=== PATIENT | male | born 2000 | race Caucasian/White ===

== ENCOUNTER 2022-06-21 06:31 | Emergency (ER) | payer SELFPAY ==
[2022-06-21 06:33] VITALS: BP 162/96; PULSE 80; RESP 17; TEMP 36.9; O2SAT 98; BMI 24.5
--- NOTE | 2022-06-21 07:09 | EDS_ITS ---
HPI History of Present Illness Chief Complaint: Fall Narrative Narrative: Patient is a 21-year-old male with no significant past medical history. He states last night he was sitting on his bed which he describes as a couch bed and accidentally fell off onto the ground. He denies striking his head or any loss of consciousness. He states this occurred around 12:30 AM. He reports that he felt a pop. He states that since that time he has had pain and a bulge in his inguinal region. He states he is very concerned that he may have developed a hernia or cause some type of injury because of the symptoms and therefore comes in for evaluation. PFSH PFS Home Medications ibuprofen 600 mg tablet 600 mg PO 4X/DAY PRN PRN pain #40 tabs 06/21/22 [Rx Last Taken Unknown] methocarbamol 500 mg tablet 500 mg PO 4X/DAY PRN PRN Muscle pain/spasm #40 tabs 06/21/22 [Rx Last Taken Unknown] Allergy/AdvReac Type Severity Reaction Status Date / Time Sulfa (Sulfonamide Allergy Hives Verified 06/21/22 06:36 Antibiotics) [sulfa drugs] Social History Smoking Status: Never smoker ROS ROS ED Constitutional Constitutional ED: Denies chills or fever(s) Eyes Eyes: Denies change in vision ENT ENT ED: Denies sore throat Cardiovascular Cardiovascular: Denies chest pain Respiratory/Chest Respiratory/Chest: Denies cough or dyspnea Gastrointestinal Gastrointestinal: Denies abdominal pain, diarrhea, nausea or vomiting Genitourinary Genitourinary ED: Denies dysuria or hematuria Musculoskeletal Musculoskeletal: Reports other Details: Positive bilateral hip pain ; Denies back pain or myalgias Integumentary Denies Abrasions or rash Neurologic Neurologic: Denies headache(s) or paresthesias Hematologic/Lymphatic Hematologic/Lymphatic: Denies easy bleeding or easy bruising EXAM Physical Exam Const Vital Signs: 06/21/22 06:33 06/21/22 06:38 Temperature 98.4 F Temperature Source Temporal Pulse Rate 80 Respiratory Rate 17 Respiratory Effort Normal Non-Labored Respiratory Depth Normal Respiratory Pattern Normal Blood Pressure 162/96 H Blood Pressure Mean 118 Pulse Ox 98 Oxygen Delivery Method Room Air Positive well nourished and well developed General Appearance ED: well developed HEENT HEENT Narrative: Normocephalic atraumatic Eyes PERRL and EOMs intact bilaterally Neck supple Resp normal respiratory effort and clear to auscultation bilaterally Cardio regular rate and regular rhythm GI normal to inspection, nondistended, normoactive bowel sounds, non-tender, non- distended and no masses Auscultation: normoactive bowel sounds Palpation: soft Narrative: There is pain with palpation in the bilateral inguinal regions but there is no bulge or muscle deformity noted to indicate hernia Extremity Extremity Narrative: Patient has pain with palpation in the bilateral inguinal region over top the abductor and abductor muscle belly. There is no obvious bony deformity or joint effusion. Patient has pain with internal and external rotation as well as hip flexion and extension bilaterally. Despite this he is able to stand and walk and bear weight on each extremity by itself. Remainder the exam is normal Neuro oriented x3 and CN's II-XII intact bilaterally Sensorium / Orientation: alert Psych Psych Narrative: Patient is a nervous/anxious affect Skin no rashes or lesions noted MDM MDM MDM Narrative Medical decision making narrative: Patient presented to the ER hypertensive otherwise with stable vitals. He reported a mechanical fall and therefore there is no need for cardiac or syncope work-up. He is able to ambulate without difficulty he can stand on 1 leg without difficulty either with each lower extremity. By exam there is no bulge or mass or signs of infection or bony deformity or joint effusion or signs of infectious process. Therefore at this time I do feel that the patient's symptoms are most likely related to muscular strain and spasm of the hip abductor and abductor muscle belly regions. Based on his young age and the fact he can bear weight on each leg without difficulty I do not feel there is need for an x-ray. Also by exam as there is no signs of hernia I do not feel there is need for imaging studies of his abdomen. Patient was informed of this he is agreeable to the plan of care which is treatment with anti-inflammatories and muscle relaxers and will be discharged home at this time. History & Record Review Discussion w/independent historian: Patient Discharge Plan Triage Chief Complaint: Fall ED Provider: Craig Sheth Dx/Rx/DC Orders Clinical Impression: Strain of hip adductor muscle Instructions: ED Hip Strain Prescriptions: New ibuprofen 600 mg tablet 600 mg PO 4X/DAY PRN PRN (Reason: pain) Qty: 40 0RF methocarbamol 500 mg tablet 500 mg PO 4X/DAY PRN PRN (Reason: Muscle pain/spasm) Qty: 40 0RF Activity Restrictions/Additional Instructions: Your exam indicates that you have strained the muscles in your hips when he fell. There is no signs of any type of bone fracture or hernia formation. Please take the medication as prescribed to help control any pain and muscle spasm. If you have any further concerns please return the hospital for repeat evaluation Disposition Disposition: Home, Self Care
== END 2022-06-21 07:30 | disposition home or self-care (01) ==
LOC: ED 07:24
PROVIDERS: Emergency Provider Emergency Medicine; Visit Provider Emergency Medicine
DX: S76.011A Strain of muscle, fascia and tendon of right hip, initial encounter (principal); W06.XXXA Fall from bed, initial encounter; S76.012A Strain of muscle, fascia and tendon of left hip, initial encounter
CPT/HCPCS: 99282